=== PATIENT | female | born 1960 | race Caucasian/White ===

== ENCOUNTER → 2016-05-15 | Outpatient (CLI) | payer BC ==
--- NOTE | 2016-05-15 09:29 | MR ---
EXAMINATION TYPE: MR knee LT wo con DATE OF EXAM: 05/15/2016 9:18 AM COMPARISON: NONE HISTORY: Left knee pain TECHNIQUE: Multiplanar, multisequence imaging of the left knee is performed without IV contrast. FINDINGS: MEDIAL MENISCUS: There is pseudoextrusion of the medial meniscus. Intrasubstance signal within the po sterior horn medial meniscus and anterior horn. Findings suspicious for degenerative tears. LATERAL MENISCUS: There is an area of grade 3 abnormal signal along the inferior margin of the body o f the meniscus compatible with a tear. Extends to the inferior articular surface. CRUCIATE LIGAMENTS: The anterior and posterior cruciate ligaments are intact and unremarkable. COLLATERAL LIGAMENTS: The medial collateral ligament and lateral collateral ligament complex are inta ct and unremarkable. EXTENSOR MECHANISM: Visualized quadriceps and patellar tendons are intact. EFFUSION: No significant suprapatellar joint effusion. POPLITEAL CYST: There is a 1.5 x 0.7 x 4.5 cm popliteal fossa cyst. TRICOMPARTMENT SPACES: Narrowing of the patellofemoral joint and medial compartment of the knee joint seen with thinning of the articular cartilage compatible with chondromalacia. Most marked findings a re seen involving the lateral patellar facet and medial femoral articular cartilage. Hypertrophic spu rring noted. Otherwise focal grade III chondromalacia involving the femoral articular lateral cartila ge. No free fragment. BONE MARROW SIGNAL: No bone marrow edema or contusion. No evidence of osteonecrosis. Cystic changes involving the proximal tibia have a benign appearance. Marrow signal alteration involving the medial tibial plateau likely is post arthritic with findings suggestive of severe osteoarthritis. IMPRESSION: 1. Severe osteoarthritis most marked findings involving the patellofemoral joint and medial compartme nt of the knee. Grade III chondromalacia involving both compartments. 2. Degenerative meniscal tears. 3. No ligamentous tear. 4. 1.5 x 0.7 x 4.5 cm popliteal fossa cyst
== END | disposition home or self-care (01) ==
LOC: RADMRIMAIN 08:42
PROVIDERS: ATTEND Orthopaedic Surgery
DX: S83.207A Unspecified tear of unspecified meniscus, current injury, left knee, initial encounter (principal); M17.12 Unilateral primary osteoarthritis, left knee; M22.42 Chondromalacia patellae, left knee; M71.22 Synovial cyst of popliteal space [Baker], left knee

== ENCOUNTER → 2016-07-06 | Outpatient (CLI) | payer BC ==
[2016-07-06 13:33] LABS: EKG EKG PERFORMED
[2016-07-06 14:10] LABS: Basophils # (A) 0.1 k/uL (0-0.2); Basophils % (A) 1 %; CH 29.1; CHCM 32.4; Eosinophils # (A) 0.2 k/uL (0-0.7); Eosinophils % (A) 2 %; HCT 42.2 % (34.0-46.0); HDW 2.46; HGB 13.5 gm/dL (11.4-16.0); Luc # (Auto) 0.21; Luc % (Auto) 2; Lymphocytes # (A) 2.3 k/uL (1.0-4.8); Lymphocytes % (A) 25 %; MCH 28.8 pg (25.0-35.0); MCHC 31.9 g/dL (31.0-37.0); MCV 90.2 fL (80.0-100.0); Mean Platelet Volume 7.1; Monocytes # (A) 0.5 k/uL (0-1.0); Monocytes % (A) 5 %; Neutrophils # (A) 6.1 k/uL (1.3-7.7); Neutrophils % (A) 65 %; RBC 4.68 m/uL (3.80-5.40); RDW 13.4 % (11.5-15.5); WBC 9.4 k/uL (3.8-10.6); WBC (Perox) 8.85
[2016-07-06 14:25] LABS: Anion Gap 12 mmol/L; Carbon Dioxide 29 mmol/L (22-30); Chloride 102 mmol/L (98-107); Potassium 4.4 mmol/L (3.5-5.1); Sodium 143 mmol/L (137-145)
== END | disposition home or self-care (01) ==
LOC: LABPAT 13:22
PROVIDERS: ATTEND Orthopaedic Surgery
DX: Z01.810 Encounter for preprocedural cardiovascular examination (principal); M23.92 Unspecified internal derangement of left knee; Z01.812 Encounter for preprocedural laboratory examination
CPT/HCPCS: 80051; 85025; 93005

== ENCOUNTER → 2016-08-02 | Outpatient (CLI) | payer BC ==
[2016-08-02 09:24] LABS: Basophils # (A) 0.1 k/uL (0-0.2); Basophils % (A) 1 %; CH 29.2; CHCM 32.5; Eosinophils # (A) 0.3 k/uL (0-0.7); Eosinophils % (A) 3 %; HCT 44.9 % (34.0-46.0); HDW 2.43; HGB 14.6 gm/dL (11.4-16.0); Luc # (Auto) 0.18; Luc % (Auto) 2; Lymphocytes # (A) 2.5 k/uL (1.0-4.8); Lymphocytes % (A) 28 %; MCH 29.4 pg (25.0-35.0); MCHC 32.6 g/dL (31.0-37.0); MCV 90.3 fL (80.0-100.0); Mean Platelet Volume 7.3; Monocytes # (A) 0.5 k/uL (0-1.0); Monocytes % (A) 6 %; Neutrophils # (A) 5.5 k/uL (1.3-7.7); Neutrophils % (A) 61 %; RBC 4.97 m/uL (3.80-5.40); RDW 13.6 % (11.5-15.5); WBC (Perox) 8.44
== END | disposition home or self-care (01) ==
LOC: LABWHC1 08:37
PROVIDERS: ATTEND Orthopaedic Surgery
DX: Z01.812 Encounter for preprocedural laboratory examination (principal); M23.92 Unspecified internal derangement of left knee
CPT/HCPCS: 80051; 85025

== ENCOUNTER 2016-08-17 06:23 | Day surgery (SDC) | payer BC ==
[2016-07-17 15:30] VITALS: BMI 42.0
--- NOTE | 2016-08-17 05:27 | HP ---
Her surgery is scheduled for 08/17/16. Aydee Mei is a 56-year-old patient seen with progressive left knee pain. We discussed treatment options. She elected to proceed with left knee arthroscopy. Consent was obtained. Past medical history is hyperlipidemia, non-insulin dependent diabetes. PAST SURGICAL HISTORY: section, cholecystectomy, back surgery. DAILY MEDICATIONS: 1. Pravastatin. 2. Ibuprofen. ALLERGIES: ASPIRIN. SOCIAL HISTORY: The patient denies current tobacco use. PHYSICAL EVALUATION OF THE LEFT KNEE: Range of motion is 0 to 120 degrees. Tenderness along the medial joint line. Positive medial Michelle's. Ligaments are stable. There is crepitus along the medial patellofemoral compartment with range of motion. Hip rotation is without pain. Distal neurovascular exam is intact. Left knee radiographs revealed mild to moderate osteoarthritis. MRI of the left knee revealed medial and lateral meniscal tears as well as osteoarthritis. IMPRESSION: Internal derangement of the left knee with medial and lateral meniscal tears. PLAN: Left knee arthroscopy with partial medial/lateral meniscectomy and debridement. ARMANDO
[~2016-08-17 06:23] MED LIST: HYDROmorphone 1 MG/ML 1 ML SYRINGE IVP PRN; LACTATED RINGERS 1,000 ML IV SCH; LIDOCAINE 1% 20 ML VIAL (10MG/ML) FOR IV START INTRADERMA PRN; ONDANSETRON 4 MG/2 ML VIAL IVP ONE; ceFAZolin 2 GM in SODIUM CHLORIDE 0.9% 100 ML IVPB ONE
[2016-08-17 06:57] VITALS: TEMP 97.7
[2016-08-17 07:08] LABS: Glucose,Whole Blood 123 mg/dL (75-99)
[2016-08-17] MEDS ORDERED: SCOPOLAMINE 1.5MG/72HR PATCH TRANSDERM ONE (07:10)
[2016-08-17] MEDS ORDERED: DEXAMETHASONE SOD PHOSPHATE 10 MG/ML 1 ML VIAL IV ONE (07:10)
[2016-08-17] MEDS ORDERED: SUCCINYLCHOLINE CHLORIDE 100 MG/5 ML SYR IV ONE (07:27)
[2016-08-17] MEDS ORDERED: fentaNYL (PF) 50 MCG/ML 2 ML AMP ONE (07:27)
[2016-08-17] MEDS ORDERED: MIDAZOLAM 2 MG/2 ML VIAL ONE (07:27)
[2016-08-17] MEDS ORDERED: LIDOCAINE 1% INJ 10MG/ML (20 ML MDV) ONE (07:27)
[2016-08-17] MEDS ORDERED: PROPOFOL 10 MG/ML 20 ML VIAL IV ONE (07:27)
[2016-08-17] MEDS ORDERED: BUPIVACAINE (PF) 0.25% 30 ML VIAL INTRAARTIC ONE (07:27)
--- NOTE | 2016-08-17 08:22 | P.OP ---
Date of Procedure: 08/17/16 Preoperative Diagnosis: Internal derangement left knee Postoperative Diagnosis: 1. Tear medial and lateral meniscus left knee 2. Grade 3 chondromalacia medial femoral condyle left knee 3. Grade 4 chondromalacia medial tibial plateau left knee 4. 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 Partial ACL tear left knee 6. Medial plica left knee 7. Reactive synovitis medial and suprapatellar compartments left knee Procedure(s) Performed: 1. Arthroscopic partial medial and lateral meniscectomy left knee 2. Arthroscopic chondroplasty medial femoral condyle left knee 3. Arthroscopic chondroplasty medial tibial plateau left knee 4. Arthroscopic chondroplasty patella left knee 5. Arthroscopic partial ACL tear left knee 6. Arthroscopic resection medial plica left knee 7. Arthroscopic partial synovectomy medial and suprapatellar compartments left knee Implants: Anesthesia: LLOYDA, local Surgeon: Pillo Ding Estimated Blood Loss (ml): 5 Pathology: none sent Condition: stable Disposition: PACU Indications for Procedure: 56-year-old patient seen with progressive left knee pain. After treatment options were discussed, she elected to proceed with arthroscopy. Operative Findings: see description of procedure Description of Procedure: Patient was taken to the operative suite. Patient underwent a general anesthetic by the department of anesthesia. Patient was given preoperative antibiotics. The left lower extremity was placed in a well-padded arthroscopic leg montalvo. The left leg was prepped and draped in the normal sterile orthopedic fashion. A lateral parapatellar and suprapatellar incision was made. Trochars were inserted. Arthroscopy was initiated. Suprapatellar pouch revealed thick reactive synovitis. The patellofemoral joint appeared to articulate congruently. There was grade 2/3 chondromalacia patella with osteochondral tears present. The scope was guided into the medial gutter. There was a medial plica which did seem to impinge along the medial femoral condyle with range of motion. The scope was then guided into the medial compartment. A medial parapatellar incision was made. Trocar inserted followed by probe. There was a radial tear involving the posterior horn and midbody of the medial meniscus. There were grade 4 chondromalacia changes of the tibial plateau at the medial aspect. There were grade 3 chondral malacia changes diffusely about the weightbearing surface medial femoral condyle. There was reactive synovitis anteriorly. A partial medial meniscectomy was performed on a stable tissue. I performed a chondroplasty of the medial femoral condyle and tibial plateau down to stable tissue. I performed a partial synovectomy. The residual meniscus and osteochondral surface were noted to be stable. Scope and probe were then guided into the intercondylar notch. There was partial tearing of the ACL noted. The PCL was intact. I debrided that torn area down to stable tissue. The residual ACL was stable.. The scope and probe were then guided into lateral compartment. There were radial tears throughout the lateral meniscus. Grade 1, changes lateral compartment osteochondral tears. No loose bodies or reactive synovitis. I performed a partial lateral meniscectomy down to stable tissue. The residual meniscus was stable. The scope was in guided back into the suprapatellar compartment. I introduced a motorized shaver into the super compartment debriding out some piecemeal fragments of meniscus. I resected that medial plica. I performed a chondroplasty patella down to stable tissue. I performed a partial synovectomy. Shaver was removed. I took one more look on the entire knee, no residual debris. Instruments were now removed from the joint. The joint was infiltrated with .25% Marcaine. Steri-Strips were applied to the portal sites. Sterile dressings were applied. The patient was placed into a ISABEL hose. No tourniquet was utilized. The patient was awakened, transferred to a bed and taken to recovery stable satisfactory condition.
[2016-08-17] MEDS ORDERED: diphenhydrAMINE 50 MG/ML 1 ML VIAL IVP ONE (08:27)
[2016-08-17] MEDS ORDERED: HYDROcodone/APAP 7.5-325MG 1 EACH TAB PO ONE (09:34)
[2016-08-17 09:36] VITALS: BP 143/882; PULSE 60; RESP 16
== END 2016-08-17 10:21 | disposition home or self-care (01) ==
LOC: OR 06:23
PROVIDERS: ATTEND Orthopaedic Surgery
DX: S83.282A Other tear of lateral meniscus, current injury, left knee, initial encounter (principal); S83.242A Other tear of medial meniscus, current injury, left knee, initial encounter; M65.9 Synovitis and tenosynovitis, unspecified; M22.42 Chondromalacia patellae, left knee; M17.12 Unilateral primary osteoarthritis, left knee; M67.52 Plica syndrome, left knee; S83.512A Sprain of anterior cruciate ligament of left knee, initial encounter; E11.9 Type 2 diabetes mellitus without complications; M54.2 Cervicalgia; K21.9 Gastro-esophageal reflux disease without esophagitis; K44.9 Diaphragmatic hernia without obstruction or gangrene; X58.XXXA Exposure to other specified factors, initial encounter; Z87.891 Personal history of nicotine dependence; Z88.6 Allergy status to analgesic agent; Z88.8 Allergy status to other drugs, medicaments and biological substances; Z79.899 Other long term (current) drug therapy
CPT/HCPCS: 29880; 29888; J2250; J1200; J1100; J0690; J2405; J2001; J3010; J0330; J2704